=== PATIENT | male | born 1980 | race African-American/Black ===

== ENCOUNTER 2022-05-26 09:58 | Inpatient (IN) | payer MEDICAID ==
[~2022-05-26] VITALS: Ht 167.6 cm; Wt 66.7 kg
[~2022-05-26 09:58] MED LIST: CARV25TA47; COUMADIN; LASIX; TORS10TA17
[2022-05-26 11:03] LABS: BASOPHILS % 0.6 % (0.0-2.0); EOSINOPHILS % 3.1 % (0.0-5.0); HEMATOCRIT. 36.8 % (42.0-52.0); LYMPHOCYTES % 27.4 % (20.0-50.0); MEAN CORPUSCULAR HEMOGLOBIN 32.2 pg (28.0-32.0); MEAN CORPUSCULAR VOLUME 98.3 fL (80.0-94.0); MEAN PLATELET VOLUME 10.7 fl (7.4-10.4); MONOCYTES % 10.2 % (2.0-8.0); NEUTROPHILS % 58.7 % (40.0-76.0); PLATELET 133 x1000/uL (130-400); RED BLOOD CELL COUNT 3.75 mill/uL (4.7-6.1); RED CELL DISTRIBUTION WIDTH 13.8 % (11.6-14.6)
[2022-05-26 11:08] LABS: CHLORIDE 107 mEq/L (98-107)
[2022-05-26] MEDS ORDERED: ONDANSETRON HCL 4MG/2ML INJ IV PRN (17:00)
[2022-05-26] MEDS ORDERED: CLONIDINE 0.1MG TABLET PO PRN (17:00)
[2022-05-26] MEDS ORDERED: MAGNESIUM/ALUMINUM HYDROXIDE/SIMETHICONE 30ML UDC PO PRN (17:00)
[2022-05-26] MEDS ORDERED: DIPHENHYDRAMINE 50MG/ML VIAL IV PRN (17:00)
[2022-05-26] MEDS ORDERED: ACETAMINOPHEN 325MG TABLET PO PRN ×2 (17:00)
[2022-05-26] MEDS ORDERED: ZOLPIDEM TARTRATE 5MG TABLET PO PRN (17:00)
[2022-05-26 17:02] VITALS: BP 113/68
[2022-05-26 17:06] LABS: INR 1.8; PROTHROMBIN TIME 18.2 sec (9.6-11.0)
[2022-05-26] MEDS ORDERED: WARFARIN SODIUM 5MG TABLET PO NR (18:00)
[2022-05-26 20:00] VITALS: BP 127/71
[2022-05-26] MEDS: SODIUM CHLORIDE 0.9% INJ 3ML FLUSH IVF SCH (20:30)
[2022-05-26] MEDS ORDERED: *PATIENT'S OWN MEDICATION STORAGE XX SCH (22:00)
[2022-05-26] MEDS ORDERED: WARF10TA44 PO (23:04)
[2022-05-27] VITALS: BP 128/62
[2022-05-27 04:00] VITALS: BP 106/64
[2022-05-27] MEDS: SODIUM CHLORIDE 0.9% INJ 3ML FLUSH IVF SCH ×3 (04:41→21:49)
[2022-05-27 08:00] VITALS: BP 122/65
[2022-05-27 10:51] LABS: INR 1.8; PROTHROMBIN TIME 18.4 sec (9.6-11.0)
[2022-05-27 12:00] VITALS: BP 132/51
[2022-05-27 16:00] VITALS: BP 135/69
[2022-05-27] MEDS ORDERED: WARFARIN SODIUM 5MG TABLET PO NR (18:00)
[2022-05-27 20:00] VITALS: BP 121/64
[2022-05-28] VITALS: BP 107/65
[2022-05-28 04:00] VITALS: BP 114/57
[2022-05-28] MEDS: SODIUM CHLORIDE 0.9% INJ 3ML FLUSH IVF SCH ×3 (05:36→20:29)
[2022-05-28 06:14] LABS: D-DIMER 0.34 mg/L FEU (<0.50); INR 1.9; PROTHROMBIN TIME 19.7 sec (9.6-11.0)
[2022-05-28 06:24] LABS: BASOPHILS % 0.9 % (0.0-2.0); EOSINOPHILS % 4.9 % (0.0-5.0); HEMATOCRIT. 37.3 % (42.0-52.0); HEMOGLOBIN. 12.4 g/dL (14.0-18.0); LYMPHOCYTES % 36.7 % (20.0-50.0); MEAN CORPUSCULAR HEMOGLOBIN 32.1 pg (28.0-32.0); MEAN CORPUSCULAR VOLUME 96.6 fL (80.0-94.0); MEAN PLATELET VOLUME 11.1 fl (7.4-10.4); MONOCYTES % 13.7 % (2.0-8.0); NEUTROPHILS % 43.8 % (40.0-76.0); PLATELET 138 x1000/uL (130-400); RED BLOOD CELL COUNT 3.86 mill/uL (4.7-6.1); RED CELL DISTRIBUTION WIDTH 13.7 % (11.6-14.6)
[2022-05-28 08:00] VITALS: BP 110/63
[2022-05-28 08:20] LABS: CHLORIDE 105 mEq/L (98-107)
[2022-05-28] MEDS: FUROSEMIDE 40MG/4ML VIAL IVP SCH ×2 (09:51→17:00)
[2022-05-28] MEDS: CARVEDILOL 3.125 MG TABLET PO SCH ×2 (09:51→20:25)
[2022-05-28 12:00] VITALS: BP 112/61
[2022-05-28 16:00] VITALS: BP 113/66
[2022-05-28] MEDS ORDERED: WARFARIN SODIUM 5MG TABLET PO NR (18:00)
[2022-05-28 20:00] VITALS: BP 136/85
[2022-05-29] VITALS: BP 110/53
[2022-05-29 04:00] VITALS: BP 108/70
[2022-05-29] MEDS: SODIUM CHLORIDE 0.9% INJ 3ML FLUSH IVF SCH ×2 (05:06→14:35)
[2022-05-29 06:26] LABS: BASOPHILS % 0.6 % (0.0-2.0); EOSINOPHILS % 3.5 % (0.0-5.0); HEMATOCRIT. 39.6 % (42.0-52.0); HEMOGLOBIN. 13.5 g/dL (14.0-18.0); LYMPHOCYTES % 34.7 % (20.0-50.0); MEAN CORPUSCULAR HEMOGLOBIN 32.7 pg (28.0-32.0); MEAN PLATELET VOLUME 11.6 fl (7.4-10.4); MONOCYTES % 14.7 % (2.0-8.0); NEUTROPHILS % 46.5 % (40.0-76.0); PLATELET 149 x1000/uL (130-400); RED BLOOD CELL COUNT 4.13 mill/uL (4.7-6.1); RED CELL DISTRIBUTION WIDTH 13.5 % (11.6-14.6)
[2022-05-29 06:29] LABS: INR 1.8; PROTHROMBIN TIME 18.3 sec (9.6-11.0)
[2022-05-29 08:00] VITALS: BP 113/69
[2022-05-29] MEDS: FUROSEMIDE 40MG/4ML VIAL IVP SCH (09:11)
[2022-05-29] MEDS: CARVEDILOL 3.125 MG TABLET PO SCH (09:12)
[2022-05-29 09:29] LABS: CHLORIDE 102 mEq/L (98-107)
[2022-05-29] MEDS ORDERED: ENOXAPARIN 60MG/0.6ML SYR SUBCUT NR (11:00)
[2022-05-29 12:00] VITALS: BP 111/72
[2022-05-29 15:44] VITALS: BP 113/74
[2022-05-29 16:00] VITALS: BP 109/70
[2022-05-29] MEDS ORDERED: WARFARIN SODIUM 10MG TABLET PO SCH (18:00)
== END 2022-05-29 16:30 | disposition home or self-care (01) | DRG 203 ==
LOC: ER 10:14 → 7WST 13:45 → EDBEDREQTM 13:56 → EDBEDREQ 13:56 → CANBEDREQ 22:33
PROVIDERS: ADMIT Internal Medicine; ATTEND Internal Medicine
DX: M94.0 Chondrocostal junction syndrome [Tietze] (principal); I31.39 Other pericardial effusion (noninflammatory); R65.10 Systemic inflammatory response syndrome (SIRS) of non-infectious origin without acute organ dysfunction; D68.69 Other thrombophilia; I11.0 Hypertensive heart disease with heart failure; I50.22 Chronic systolic (congestive) heart failure; I48.20 Chronic atrial fibrillation, unspecified; Z79.01 Long term (current) use of anticoagulants; I34.0 Nonrheumatic mitral (valve) insufficiency; Z86.73 Personal history of transient ischemic attack (TIA), and cerebral infarction without residual deficits; Z95.3 Presence of xenogenic heart valve; I25.2 Old myocardial infarction
CPT/HCPCS: 36415; 71045; 80048; 80053; 83880; 84484; 85025; 85379; 93005; 93306; 93970; 99291; J1650; J1940

== ENCOUNTER 2022-10-01 11:46 | Emergency (ER) | payer MEDICAID ==
[~2022-10-01] VITALS: Ht 170.2 cm; Wt 65.0 kg
[~2022-10-01 11:46] MED LIST changes: -CARV25TA47; -COUMADIN; -LASIX; -TORS10TA17; +WARF10TA44 PO
[2022-10-01 12:34] LABS: BASOPHILS % 0.6 % (0.0-2.0); EOSINOPHILS % 1.1 % (0.0-5.0); HEMATOCRIT. 35.8 % (42.0-52.0); HEMOGLOBIN. 11.8 g/dL (14.0-18.0); LYMPHOCYTES % 23.6 % (20.0-50.0); MEAN CORPUSCULAR HEMOGLOBIN 32.1 pg (28.0-32.0); MEAN CORPUSCULAR VOLUME 97.5 fL (80.0-94.0); MEAN PLATELET VOLUME 10.1 fl (7.4-10.4); MONOCYTES % 11.1 % (2.0-8.0); NEUTROPHILS % 63.6 % (40.0-76.0); PLATELET 163 x1000/uL (130-400); RED BLOOD CELL COUNT 3.68 mill/uL (4.7-6.1); RED CELL DISTRIBUTION WIDTH 14.3 % (11.6-14.6)
[2022-10-01 12:54] LABS: CHLORIDE 109 mEq/L (98-107)
[2022-10-01] MEDS ORDERED: SENN-257 MT (14:34)
[2022-10-01 14:52] VITALS: BP 134/74
== END 2022-10-01 15:09 | disposition home or self-care (01) ==
LOC: ER 11:46
DX: R10.12 Left upper quadrant pain (principal); I48.91 Unspecified atrial fibrillation; Z86.73 Personal history of transient ischemic attack (TIA), and cerebral infarction without residual deficits
CPT/HCPCS: 36415; 74176; 80053; 83605; 83690; 84484; 85025; 93005; 99285; Z7610